=== PATIENT | male | born 1995 | race Caucasian/White ===

== ENCOUNTER 2021-10-05 17:13 | Emergency (ER) | payer OTHER ==
[~2021-10-05] VITALS: Ht 177.8 cm; Wt 79.5 kg
[2021-10-05 17:15] VITALS: BP 137/85
[2021-10-05] MEDS ORDERED: CYCL10TA19 PO (17:58)
[2021-10-05] MEDS ORDERED: NAPR-514 PO (17:58)
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
== END 2021-10-05 18:00 | disposition home or self-care (01) ==
LOC: ER 17:13
DX: S13.9XXA Sprain of joints and ligaments of unspecified parts of neck, initial encounter (principal); M25.511 Pain in right shoulder; V49.59XA Passenger injured in collision with other motor vehicles in traffic accident, initial encounter; Y93.89 Activity, other specified; Y92.488 Other paved roadways as the place of occurrence of the external cause; Y99.8 Other external cause status
CPT/HCPCS: 99283